=== PATIENT | female | born 1975 | race Caucasian/White ===

== ENCOUNTER 2019-04-13 21:46 | Inpatient (IN) | payer MEDICAID, OTHER ==
[~2019-04-13] VITALS: Ht 170.2 cm; Wt 50.0 kg
[2019-04-13 22:26] LABS: HEMATOCRIT 41.1 % (36-46)
[2019-04-13] MEDS ORDERED: SODIUM CHLORIDE 0.9% 1,000 ML IV ONE ×2 (22:30→23:30)
[2019-04-13 22:38] LABS: ANION GAP 8 mmol/L (8-16); CALCIUM, TOTAL 9.3 mg/dL (8.8-10.5); CARBON DIOXIDE 26 mmol/L (22-29); CHLORIDE 103 mmol/L (98-107); CREATININE 1.05 mg/dL (0.60-1.30); GLOMERULAR FILTR. RATE CALC 58 mL/min (>60); GLUCOSE,RANDOM 102 mg/dL (70-110); POTASSIUM 4.2 mmol/L (3.5-5.1); SODIUM SERUM 137 mmol/L (136-145); UREA NITROGEN, BLOOD 20 mg/dL (7-18)
[2019-04-13 22:42] LABS: HEMOGLOBIN 13.8 g/dL (12.0-16.0); MEAN CORPUSCULAR HEMOGLOBIN 27.5 pg (26.0-34.0); MEAN CORPUSCULAR HGB CONC 33.6 G/dL (31.0-37.0); MEAN CORPUSCULAR VOLUME 82 fL (80-100); PLATELET COUNT (AUTO) 394 K/uL (150-450); RED BLOOD CELL COUNT(AUTO) 5.02 MIL/uL (4.00-5.20); RED CELL DISTRIBUTION WIDTH 13.6 % (11.5-14.5)
[2019-04-13 23:06] LABS: BAND NEUTROPHILS % (MANUAL) 2 % (0-5); LYMPHOCYTES % (MANUAL) 18 % (22-44); MONOCYTES % (MANUAL) 6 % (2-9); PLATELET MORPHOLOGY COMMENT GIANT PLTS PRESENT; SEGMENTED NEUTROPHILS % 74 % (40-70)
[2019-04-13 23:07] LABS: ALANINE AMINOTRANSFERASE 15 U/L (12-78); ALBUMIN 3.9 g/dL (3.4-5.0); ALKALINE PHOSPHATASE 73 U/L (46-116); ASPARTATE AMINOTRANSFERASE 27 U/L (15-37); BILIRUBIN,TOTAL 0.5 mg/dL (0.1-1.0); CREATINE KINASE, TOTAL ONLY 194 U/L (26-192); TOTAL PROTEIN, SERUM 7.3 g/dL (6.4-8.2)
[2019-04-13 23:25] LABS: HCG,QUANTITATIVE < 1 mIU/mL (0-6)
[2019-04-13 23:47] LABS: APPEARANCE,URINE CLOUDY (CLEAR); BILIRUBIN,URINE NEGATIVE (NEGATIVE); GLUCOSE, URINE (UA) NEGATIVE (NEGATIVE); KETONES,URINE NEGATIVE (NEGATIVE); LEUKOCYTE ESTERASE ,URINE NEGATIVE (NEGATIVE); NITRATE,URINE NEGATIVE (NEGATIVE); OCCULT BLOOD,URINE NEGATIVE (NEGATIVE); PROTEIN,URINE TRACE (NEGATIVE); UROBILINOGEN,URINE 0.2 mg/dL (<=1.0)
[2019-04-14] MEDS ORDERED: ZOLPIDEM TARTRATE 5 MG TABLET PO PRN
[2019-04-14] MEDS ORDERED: MAGNESIUM HYDROXIDE SUSPENSION 30 ML UDCUP PO PRN
[2019-04-14] MEDS ORDERED: HYDROCODONE/ACETAMINOPHEN 5-325 MG TABLET PO PRN
[2019-04-14] MEDS ORDERED: SODIUM CHLORIDE 0.9% 1,000 ML IV ONE
[2019-04-14] MEDS ORDERED: MORPHINE SULFATE 2 MG/ML SYRINGE IVP PRN
[2019-04-14] MEDS ORDERED: BISACODYL 10 MG RECTAL RECTAL SUPPOSITORY PR PRN
[2019-04-14 00:09] LABS: AMPHET/METH SCREEN,URINE POSITIVE (NEGATIVE); BARBITURATE SCREEN, URINE NEGATIVE (NEGATIVE); BENZODIAZEPINES SCREEN,URINE NEGATIVE (NEGATIVE); CANNABINOID SCREEN,URINE NEGATIVE (NEGATIVE); COCAINE SCREEN,URINE NEGATIVE (NEGATIVE); METHADONE SCREEN, URINE NEGATIVE (NEGATIVE); OPIATE SCREEN,URINE NEGATIVE (NEGATIVE)
[2019-04-14 00:10] LABS: PHENCYCLIDINE SCREEN,URINE NEGATIVE (NEGATIVE)
[2019-04-14] MEDS ORDERED: MIDAZOLAM HCL 2 MG/2 ML VIAL IVP ONE (01:15)
[2019-04-14] MEDS ORDERED: 0.9% SODIUM CHLORIDE 10 ML SYRINGE IVP PRN (02:45)
[2019-04-14] MEDS ORDERED: ACETAMINOPHEN 325 MG TABLET PO PRN ×2 (02:45)
[2019-04-14] MEDS ORDERED: ONDANSETRON HCL 4 MG/2 ML VIAL IVP PRN ×2 (02:45)
[2019-04-14 06:56] LABS: EOSINOPHILS % (AUTO) 0.6 % (1.0-6.0); HEMATOCRIT 40.4 % (36-46); HEMOGLOBIN 13.2 g/dL (12.0-16.0); LYMPHOCYTES # (AUTO) 1.6 K/uL (1.0-4.8); LYMPHOCYTES % (AUTO) 25.9 % (22.0-44.0); MEAN CORPUSCULAR HGB CONC 32.7 G/dL (31.0-37.0); MEAN CORPUSCULAR VOLUME 83 fL (80-100); MONOCYTES # (AUTO) 0.5 K/uL (0.1-1.0); MONOCYTES % (AUTO) 7.8 % (2.0-9.0); NEUTROPHILS % (AUTO) 64.7 % (40.0-70.0); PLATELET COUNT (AUTO) 347 K/uL (150-450); RED BLOOD CELL COUNT(AUTO) 4.88 MIL/uL (4.00-5.20); RED CELL DISTRIBUTION WIDTH 13.9 % (11.5-14.5)
[2019-04-14 07:06] LABS: ANION GAP 7 mmol/L (8-16); CALCIUM, TOTAL 8.5 mg/dL (8.8-10.5); CARBON DIOXIDE 25 mmol/L (22-29); CHLORIDE 104 mmol/L (98-107); GLOMERULAR FILTR. RATE CALC > 60 mL/min (>60); GLUCOSE,RANDOM 79 mg/dL (70-110); POTASSIUM 3.9 mmol/L (3.5-5.1); SODIUM SERUM 136 mmol/L (136-145); UREA NITROGEN, BLOOD 11 mg/dL (7-18)
[2019-04-14] MEDS: HEPARIN SODIUM,PORCINE 5,000 UNITS/ML VIAL SQ SCH ×2 (08:00)
[2019-04-14] MEDS ORDERED: PANTOPRAZOLE SODIUM 40 MG DR TABLET PO SCH (09:00)
[2019-04-14] MEDS ORDERED: DOCUSATE SODIUM 100 MG CAPSULE PO SCH (09:00)
[2019-04-14] MEDS ORDERED: LORazepam 2 MG/ML VIAL IM PRN (09:45)
[2019-04-14] MEDS ORDERED: LORazepam 2 MG/ML VIAL IVP PRN (10:15)
[2019-04-14 10:19] VITALS: BP 109/64
== END 2019-04-14 13:30 | DRG 812 ==
LOC: EMS 21:47 → 5N 04-14 01:00
PROVIDERS: ADMIT Internal Medicine; ATTEND Internal Medicine
DX: T43.621A Poisoning by amphetamines, accidental (unintentional), initial encounter (principal); E43 Unspecified severe protein-calorie malnutrition; G92 Toxic encephalopathy; M62.82 Rhabdomyolysis; E86.0 Dehydration; R00.0 Tachycardia, unspecified; F29 Unspecified psychosis not due to a substance or known physiological condition; F15.129 Other stimulant abuse with intoxication, unspecified; F19.90 Other psychoactive substance use, unspecified, uncomplicated; Y92.89 Other specified places as the place of occurrence of the external cause
CPT/HCPCS: 93005; G0480; J1644; J2060; J2250; J7030

== ENCOUNTER 2019-04-14 12:00 | Inpatient (IN) | payer MEDICAID, OTHER ==
[~2019-04-14] VITALS: Ht 167.6 cm; Wt 47.0 kg
[2019-04-14] MEDS ORDERED: OLANZapine 5 MG TABLET PO PRN (13:00)
[2019-04-14] MEDS ORDERED: ZOLPIDEM TARTRATE 10 MG TABLET PO PRN (13:00)
[2019-04-14] MEDS ORDERED: LORazepam 2 MG TABLET PO PRN (13:00)
[2019-04-14] MEDS ORDERED: LORazepam 2 MG/ML VIAL IM ONE (17:15)
[2019-04-14] MEDS ORDERED: HALOPERIDOL LACTATE 5 MG/ML VIAL IM ONE (17:15)
[2019-04-14] MEDS ORDERED: HALOPERIDOL LACTATE 5 MG/ML VIAL ONE (17:16)
[2019-04-14] MEDS ORDERED: LORazepam 2 MG/ML VIAL ONE (17:16)
[2019-04-14] MEDS ORDERED: MAGNESIUM HYDROXIDE SUSPENSION 30 ML UDCUP PO PRN (21:15)
[2019-04-14] MEDS ORDERED: GuaiFENesin/D-METHORPHAN [SUGAR-FREE] 200-20MG/10 ML SYRUP UDCUP PO PRN (21:15)
[2019-04-14] MEDS ORDERED: ONDANSETRON HCL 4 MG TABLET PO PRN (21:15)
[2019-04-14] MEDS ORDERED: NICOTINE 14 MG/24 HOUR PATCH TD PRN (21:15)
[2019-04-14] MEDS ORDERED: MAG HYDROX/AL HYDROX/SIMETH ES 30 ML SUSPENSION UDCUP PO PRN (21:15)
[2019-04-14] MEDS ORDERED: IBUPROFEN 400 MG TABLET PO PRN (21:15)
[2019-04-14] MEDS ORDERED: PETROLATUM,WHITE 28 GM JELLY TP PRN (21:15)
[2019-04-14] MEDS ORDERED: CloNIDine HCL 0.1 MG TABLET PO PRN (21:15)
[2019-04-14] MEDS ORDERED: LOPERAMIDE HCL 2 MG CAPSULE PO PRN (21:15)
[2019-04-14] MEDS ORDERED: DOCUSATE SODIUM 100 MG CAPSULE PO PRN (21:15)
[2019-04-14] MEDS ORDERED: ALBUTEROL SULFATE HFA 90 MCG/PUFF 8 GM INHALER IH PRN (21:15)
[2019-04-14] MEDS ORDERED: ACETAMINOPHEN 325 MG TABLET PO PRN (21:15)
[2019-04-15] MEDS: RisperiDONE 1 MG TABLET PO SCH ×3 (08:05→17:00)
[2019-04-16] MEDS: RisperiDONE 1 MG TABLET PO SCH ×2 (09:00→17:00)
[2019-04-17] MEDS: RisperiDONE 1 MG TABLET PO SCH ×2 (08:05→17:00)
[2019-04-18] MEDS: RisperiDONE 1 MG TABLET PO SCH ×2 (08:53→16:59)
[2019-04-19] MEDS: RisperiDONE 1 MG TABLET PO SCH ×2 (08:54→16:54)
[2019-04-20] MEDS: RisperiDONE 1 MG TABLET PO SCH ×2 (08:40→17:00)
[2019-04-21] MEDS: RisperiDONE 1 MG TABLET PO SCH ×2 (08:01→16:51)
[2019-04-22] MEDS: RisperiDONE 1 MG TABLET PO SCH ×2 (08:25→16:28)
[2019-04-22] MEDS ORDERED: RISP1 PO (13:02)
== END 2019-04-22 18:45 | disposition home or self-care (01) | DRG 750 ==
LOC: 3EC 13:45
PROVIDERS: ADMIT Psychiatry & Neurology Psychiatry; ATTEND Psychiatry & Neurology Psychiatry
DX: F25.9 Schizoaffective disorder, unspecified (principal); G92 Toxic encephalopathy; E46 Unspecified protein-calorie malnutrition; M62.82 Rhabdomyolysis; F41.9 Anxiety disorder, unspecified; K59.00 Constipation, unspecified; Z79.899 Other long term (current) drug therapy; Z59.0 Homelessness; Z91.19 Patient's noncompliance with other medical treatment and regimen
CPT/HCPCS: J1630; J2060

== ENCOUNTER 2019-10-27 19:58 | Inpatient (IN) | payer MEDICAID ==
[~2019-10-27 19:58] MED LIST: RISP1 PO
[2019-10-28 01:47] VITALS: BP 102/60
[2019-10-28] MEDS ORDERED: ZOLPIDEM TARTRATE 10 MG TABLET PO PRN (03:00)
[2019-10-28] MEDS: RisperiDONE 1 MG TABLET PO SCH ×2 (09:30→17:00)
[2019-10-28] MEDS ORDERED: IBUPROFEN 400 MG TABLET PO PRN (12:00)
[2019-10-28] MEDS ORDERED: CloNIDine HCL 0.1 MG TABLET PO PRN (12:00)
[2019-10-28] MEDS ORDERED: MAGNESIUM HYDROXIDE SUSPENSION 30 ML UDCUP PO PRN (12:00)
[2019-10-28] MEDS ORDERED: ONDANSETRON HCL 4 MG TABLET PO PRN (12:00)
[2019-10-28] MEDS ORDERED: PETROLATUM,WHITE 28 GM JELLY TP PRN (12:00)
[2019-10-28] MEDS ORDERED: ALBUTEROL SULFATE HFA 90 MCG/PUFF 8 GM INHALER IH PRN (12:00)
[2019-10-28] MEDS ORDERED: LOPERAMIDE HCL 2 MG CAPSULE PO PRN (12:00)
[2019-10-28] MEDS ORDERED: GuaiFENesin/D-METHORPHAN [SUGAR-FREE] 200-20MG/10 ML SYRUP UDCUP PO PRN (12:00)
[2019-10-28] MEDS ORDERED: NICOTINE 14 MG/24 HOUR PATCH TD PRN (12:00)
[2019-10-28] MEDS ORDERED: DOCUSATE SODIUM 100 MG CAPSULE PO PRN (12:00)
[2019-10-29 03:11] VITALS: BP 122/77
[2019-10-29] MEDS: RisperiDONE 1 MG TABLET PO SCH ×2 (08:57→16:46)
[2019-10-30] MEDS: RisperiDONE 1 MG TABLET PO SCH ×2 (09:12→16:25)
[2019-10-31 08:05] VITALS: BP 112/69
[2019-10-31] MEDS: RisperiDONE 1 MG TABLET PO SCH ×2 (09:00→16:49)
[2019-10-31] MEDS ORDERED: DiphenhydrAMINE HCL 50 MG/ML VIAL ONE (12:29)
[2019-10-31] MEDS ORDERED: LORazepam 2 MG/ML VIAL ONE (12:29)
[2019-10-31] MEDS ORDERED: HALOPERIDOL LACTATE 5 MG/ML VIAL ONE (12:29)
[2019-10-31] MEDS ORDERED: DiphenhydrAMINE HCL 50 MG/ML VIAL IM ONE (12:45)
[2019-10-31] MEDS ORDERED: HALOPERIDOL LACTATE 5 MG/ML VIAL IM ONE (12:45)
[2019-10-31] MEDS ORDERED: LORazepam 2 MG/ML VIAL IM ONE (12:45)
[2019-10-31 16:06] VITALS: BP 104/73
[2019-11-01] MEDS: RisperiDONE 1 MG TABLET PO SCH ×2 (08:11→17:00)
[2019-11-01] MEDS ORDERED: DiphenhydrAMINE HCL 50 MG/ML VIAL IM ONE ×2 (09:45→13:30)
[2019-11-01] MEDS ORDERED: LORazepam 2 MG/ML VIAL IM ONE ×2 (09:45→13:30)
[2019-11-01] MEDS ORDERED: HALOPERIDOL LACTATE 5 MG/ML VIAL IM ONE ×2 (09:45→13:30)
[2019-11-01] MEDS ORDERED: HALOPERIDOL LACTATE 5 MG/ML VIAL ONE (13:32)
[2019-11-01] MEDS ORDERED: DiphenhydrAMINE HCL 50 MG/ML VIAL ONE (13:32)
[2019-11-01] MEDS ORDERED: LORazepam 2 MG/ML VIAL ONE (13:32)
[2019-11-01 13:41] VITALS: BP 114/67
[2019-11-02] MEDS: RisperiDONE 1 MG TABLET PO SCH ×2 (08:51→17:00)
[2019-11-03] MEDS: LORazepam 1 MG TABLET PO PRN (08:21)
[2019-11-03] MEDS: RisperiDONE 1 MG TABLET PO SCH ×2 (08:21→16:27)
[2019-11-04] MEDS ORDERED: HALOPERIDOL LACTATE 5 MG/ML VIAL ONE (04:08)
[2019-11-04] MEDS ORDERED: LORazepam 2 MG/ML VIAL IM ONE (04:15)
[2019-11-04] MEDS ORDERED: DiphenhydrAMINE HCL 50 MG/ML VIAL IM ONE (04:15)
[2019-11-04] MEDS ORDERED: HALOPERIDOL LACTATE 5 MG/ML VIAL IM ONE (04:15)
[2019-11-04 08:14] VITALS: BP 102/63
[2019-11-04] MEDS: RisperiDONE 1 MG TABLET PO SCH ×2 (09:00→17:21)
[2019-11-04] MEDS: LORazepam 1 MG TABLET PO PRN (11:30)
[2019-11-05 08:15] VITALS: BP 100/72
[2019-11-05] MEDS: LORazepam 1 MG TABLET PO PRN (08:54)
[2019-11-05] MEDS: RisperiDONE 1 MG TABLET PO SCH ×2 (08:54→17:00)
[2019-11-05] MEDS ORDERED: DiphenhydrAMINE HCL 50 MG/ML VIAL ONE (17:08)
[2019-11-05] MEDS ORDERED: LORazepam 2 MG/ML VIAL ONE (17:08)
[2019-11-05] MEDS ORDERED: HALOPERIDOL LACTATE 5 MG/ML VIAL ONE (17:08)
[2019-11-05] MEDS ORDERED: HALOPERIDOL LACTATE 5 MG/ML VIAL IM ONE (17:15)
[2019-11-05] MEDS ORDERED: DiphenhydrAMINE HCL 50 MG/ML VIAL IM ONE (17:15)
[2019-11-05] MEDS ORDERED: LORazepam 2 MG/ML VIAL IM ONE (17:15)
[2019-11-06] MEDS: RisperiDONE 1 MG TABLET PO SCH ×2 (08:21→17:00)
[2019-11-06] MEDS: LORazepam 1 MG TABLET PO PRN ×2 (08:21→10:50)
[2019-11-06] MEDS: HALOPERIDOL 5 MG TABLET PO PRN (10:50)
[2019-11-06] MEDS: ACETAMINOPHEN 325 MG TABLET PO PRN (15:31)
[2019-11-06] MEDS ORDERED: HALOPERIDOL LACTATE 5 MG/ML VIAL ONE (16:09)
[2019-11-06] MEDS ORDERED: DiphenhydrAMINE HCL 50 MG/ML VIAL ONE (16:09)
[2019-11-06] MEDS ORDERED: LORazepam 2 MG/ML VIAL ONE (16:09)
[2019-11-06] MEDS ORDERED: DiphenhydrAMINE HCL 50 MG/ML VIAL IM ONE (16:30)
[2019-11-06] MEDS ORDERED: LORazepam 2 MG/ML VIAL IM ONE (16:30)
[2019-11-06] MEDS ORDERED: HALOPERIDOL LACTATE 5 MG/ML VIAL IM ONE (16:30)
[2019-11-07] MEDS: RisperiDONE 1 MG TABLET PO SCH (08:16)
[2019-11-07] MEDS: LORazepam 1 MG TABLET PO PRN (08:17)
[2019-11-07] MEDS: HALOPERIDOL 5 MG TABLET PO PRN (08:54)
[2019-11-07] MEDS ORDERED: HALOPERIDOL LACTATE 5 MG/ML VIAL ONE (17:05)
[2019-11-07] MEDS ORDERED: LORazepam 2 MG/ML VIAL ONE (17:05)
[2019-11-07] MEDS ORDERED: DiphenhydrAMINE HCL 50 MG/ML VIAL ONE (17:05)
[2019-11-07] MEDS ORDERED: HALOPERIDOL LACTATE 5 MG/ML VIAL IM ONE (17:15)
[2019-11-07] MEDS ORDERED: DiphenhydrAMINE HCL 50 MG/ML VIAL IM ONE (17:15)
[2019-11-07] MEDS ORDERED: LORazepam 2 MG/ML VIAL IM ONE (17:15)
[2019-11-08] MEDS: MAG HYDROX/AL HYDROX/SIMETH ES 30 ML SUSPENSION UDCUP PO PRN (02:58)
[2019-11-08] MEDS: LORazepam 1 MG TABLET PO PRN (08:04)
[2019-11-08] MEDS: RisperiDONE 4 MG TABLET PO SCH (08:04)
[2019-11-09 01:13] VITALS: BP 123/66
[2019-11-09 08:05] VITALS: BP 111/68
[2019-11-09] MEDS: RisperiDONE 4 MG TABLET PO SCH (08:15)
[2019-11-10] MEDS: MAG HYDROX/AL HYDROX/SIMETH ES 30 ML SUSPENSION UDCUP PO PRN ×2 (01:10→16:28)
[2019-11-10] MEDS ORDERED: DiphenhydrAMINE HCL 50 MG/ML VIAL ONE (05:59)
[2019-11-10] MEDS ORDERED: LORazepam 2 MG/ML VIAL ONE (05:59)
[2019-11-10] MEDS ORDERED: HALOPERIDOL LACTATE 5 MG/ML VIAL ONE (06:00)
[2019-11-10] MEDS ORDERED: DiphenhydrAMINE HCL 50 MG/ML VIAL IM ONE (06:15)
[2019-11-10] MEDS ORDERED: HALOPERIDOL LACTATE 5 MG/ML VIAL IM ONE (06:15)
[2019-11-10] MEDS ORDERED: LORazepam 2 MG/ML VIAL IM ONE (06:15)
[2019-11-10] MEDS: RisperiDONE 4 MG TABLET PO SCH (08:55)
[2019-11-10] MEDS: ACETAMINOPHEN 325 MG TABLET PO PRN (16:43)
[2019-11-11] MEDS: ACETAMINOPHEN 325 MG TABLET PO PRN ×2 (05:17→15:55)
[2019-11-11] MEDS: LORazepam 1 MG TABLET PO PRN (08:04)
[2019-11-11] MEDS: RisperiDONE 4 MG TABLET PO SCH (08:04)
[2019-11-11] MEDS: MAG HYDROX/AL HYDROX/SIMETH ES 30 ML SUSPENSION UDCUP PO PRN ×2 (08:04→16:58)
[2019-11-11 08:23] VITALS: BP 114/69
[2019-11-12] MEDS: LORazepam 1 MG TABLET PO PRN (08:02)
[2019-11-12] MEDS: RisperiDONE 4 MG TABLET PO SCH (08:02)
[2019-11-13 00:33] VITALS: BP 118/67
[2019-11-13] MEDS: RisperiDONE 4 MG TABLET PO SCH (08:22)
[2019-11-13] MEDS ORDERED: RISP4 PO (09:42)
== END 2019-11-13 15:35 | disposition home or self-care (01) | DRG 750 ==
LOC: B3A 10-28 02:45
PROVIDERS: ADMIT Psychiatry & Neurology Child & Adolescent Psychiatry; ATTEND Psychiatry & Neurology Child & Adolescent Psychiatry
DX: F25.1 Schizoaffective disorder, depressive type (principal); R45.851 Suicidal ideations; Z91.14 Patient's other noncompliance with medication regimen; R63.4 Abnormal weight loss; F10.10 Alcohol abuse, uncomplicated; Y90.9 Presence of alcohol in blood, level not specified; F19.10 Other psychoactive substance abuse, uncomplicated; G44.209 Tension-type headache, unspecified, not intractable; F15.90 Other stimulant use, unspecified, uncomplicated; R10.13 Epigastric pain; Z79.899 Other long term (current) drug therapy
CPT/HCPCS: J1200; J1630; J2060